=== PATIENT | female | born 1980 | race Caucasian/White ===

== ENCOUNTER 2016-10-05 09:34 | Emergency (ER) | payer MEDICAID ==
[2016-10-05] MEDS ORDERED: HYDROCODONE/ACETAMINOPHEN 5-325 MG TABLET PO ONE (10:16)
--- NOTE | 2016-10-05 10:21 | ER Document Report ---
ED General - General Chief Complaint: Vaginal Bleeding Stated Complaint: LOWER BACK PAIN Time Seen by Provider: 10/05/16 09:53 Mode of Arrival: Ambulatory Information source: Patient Notes: 35 yr old female presents with complaints of left lower quadrant abdominal pain. Patient notes that she has a history of ovarian cysts. Denies any fevers or chills admits to cramping sensation. Patient has had intermittent spotting as well. TRAVEL OUTSIDE OF THE [place] IN LAST 30 DAYS: No - HPI Onset: Yesterday Onset/Duration: Sudden Quality of pain: Sharp Severity: Mild Pain Level: 1 Associated symptoms: None Exacerbated by: Denies Relieved by: Denies Similar symptoms previously: No Recently seen / treated by doctor: No - Related Data Allergies/Adverse Reactions: Sulfa (Sulfonamide Antibiotics) Allergy (Verified 10/05/16 10:12) Past Medical History - Social History Smoking Status: Current Every Day Smoker Cigarette use (# per day): Yes Chew tobacco use (# tins/day): No Smoking Education Provided: No Family History: Reviewed & Not Pertinent Renal/ Medical History: Denies: Hx Peritoneal Dialysis Past Surgical History: Reports: Hx Cholecystectomy, Hx Tonsillectomy, Hx Tubal Ligation - Immunizations Immunizations up to date: Yes Hx Diphtheria, Pertussis, Tetanus Vaccination: Yes Review of Systems - Review of Systems Notes: REVIEW OF SYSTEMS: CONSTITUTIONAL : Denies fever, chills, or sweats. Denies recent illness. EENT: Denies eye, ear, throat, or mouth pain or symptoms. Denies nasal or sinus congestion or discharge. Denies throat, tongue, or mouth swelling or difficulty swallowing. CARDIOVASCULAR: Denies chest pain. Denies palpitations or racing or irregular heart beat. Denies ankle edema. RESPIRATORY: Denies cough, cold, or chest congestion. Denies shortness of breath, difficulty breathing, or wheezing. GASTROINTESTINAL: admits to abd pain . GENITOURINARY: Denies difficulty urinating, painful urination, burning, frequency, blood in urine, or discharge. FEMALE GENITOURINARY: vaginal spotting MUSCULOSKELETAL: Denies back or neck pain or stiffness. Denies joint pain or swelling. SKIN: Denies rash, lesions or sores. HEMATOLOGIC : Denies easy bruising or bleeding. LYMPHATIC: Denies swollen, enlarged glands. NEUROLOGICAL: Denies confusion or altered mental status. Denies passing out or loss of consciousness. Denies dizziness or lightheadedness. Denies headache. Denies weakness or paralysis or loss of use of either side. Denies problems with gait or speech. Denies sensory loss, numbness, or tingling. Denies seizures. PSYCHIATRIC: Denies anxiety or stress. Denies depression, suicidal ideation, or homicidal ideation. ALL OTHER SYSTEMS REVIEWED AND NEGATIVE. PHYSICAL EXAMINATION: GENERAL: Well-appearing, well-nourished and in no acute distress. HEAD: Atraumatic, normocephalic. EYES: Pupils equal round and reactive to light, extraocular movements intact, conjunctiva are normal. ENT: Nares patent, oropharynx clear without exudates. Moist mucous membranes. NECK: Normal range of motion, supple without lymphadenopathy LUNGS: Breath sounds clear to auscultation bilaterally and equal. No wheezes rales or rhonchi. HEART: Regular rate and rhythm without murmurs ABDOMEN: Soft,mild tenderness LLQ Female : deferred Musculoskeletal: Normal range of motion, no pitting or edema. No cyanosis. NEUROLOGICAL: Cranial nerves grossly intact. Normal speech, normal gait. Normal sensory, motor exams PSYCH: Normal mood, normal affect. SKIN: Warm, Dry, normal turgor, no rashes or lesions noted. Dictation was performed using [employer] voice recognition software Physical Exam - Vital signs Vitals: Temp Pulse Resp BP Pulse Ox 98.4 F 80 18 154/65 H 99 10/05/16 09:46 10/05/16 09:46 10/05/16 09:46 10/05/16 09:46 10/05/16 09:46 Course - Re-evaluation Re-evalutation: 10/05/16 10:22 u/s pending 10/05/16 11:37 Ultrasound is consistent with a fibroid and nabothian cysts. Otherwise patient appears well labwork notes no significant abnormality. Patient will be given follow-up with [facility] After performing a Medical Screening Examination, I estimate there is LOW risk for ACUTE APPENDICITIS, BOWEL OBSTRUCTION, ACUTE CHOLECYSTITIS, PERFORATED DIVERTICULITIS, INCARCERATED HERNIA, PANCREATITIS, PELVIC INFLAMMATORY DISEASE, PERFORATED ULCER, ECTOPIC , or TUBO-OVARIAN ABSCESS, thus I consider the discharge disposition reasonable. Also, there is no evidence or peritonitis , sepsis, or toxicity. I have reevaluated this patient multiple times and no significant life threatening changes are noted. The patient and I have discussed the diagnosis and risks, and we agree with discharging home with close follow-up with the understanding that symptoms and presentations can change. We also discussed returning to the Emergency Department immediately if new or worsening symptoms occur. We have discussed the symptoms which are most concerning (e.g., bloody stool, fever, changing or worsening pain, vomiting) that necessitate immediate return. - Vital Signs Vital signs: Temp Pulse Resp BP Pulse Ox 98.4 F 80 18 154/65 H 99 10/05/16 09:46 10/05/16 09:46 10/05/16 09:46 10/05/16 09:46 10/05/16 09:46 - Laboratory Result Diagrams: 10/05/16 10:23 10/05/16 10:23 Laboratory results interpreted by me: 10/05/16 10/05/16 10/05/16 10:23 10:23 10:23 RDW 17.6 H BUN 5 L Urine Blood MODERATE H - Diagnostic Test Radiology reviewed: Image reviewed, Reports reviewed - results given to patient Discharge - Discharge Clinical Impression: Vaginal bleeding, Nabothian cyst Fibroid Qualifiers: Uterine leiomyoma location: unspecified location Qualified Code(s): D25.9 - Leiomyoma of uterus, unspecified Condition: Stable Disposition: HOME, SELF-CARE Instructions: Dysfunctional Uterine Bleeding ([facility]) Prescriptions: Hydrocodone/Acetaminophen [Seneca 5-325 mg Tablet] 1 tab PO Q6 #10 tablet Referrals: [facility] [Provider Group] - Follow up tomorrow
[2016-10-05 10:45] LABS: ABSOLUTE EOSINOPHILS # (AUTO) 0.2 10^3/uL (0.0-0.6); ABSOLUTE LYMPHOCYTES (AUTO) 1.8 10^3/uL (0.5-4.7); ABSOLUTE MONOCYTES (AUTO) 0.5 10^3/uL (0.1-1.4); ABSOLUTE NEUT (AUTO) 6.6 10^3/uL (1.7-8.2); BASOPHILS % (AUTO) 0.3 % (0-2); EOSINOPHILS % (AUTO) 1.7 % (0-6); HEMATOCRIT 39.2 % (36.0-47.0); HEMOGLOBIN 12.9 g/dL (12.0-15.5); HGB HCT DIFFERENCE -0.5; LYMPHOCYTES % (AUTO) 19.6 % (13-45); MEAN CORPUSCULAR HEMOGLOBIN 29.3 pg (27.0-33.4); MEAN CORPUSCULAR HGB CONC 32.9 g/dL (32.0-36.0); MEAN CORPUSCULAR VOLUME 89 fl (80-97); MONOCYTES % (AUTO) 5.3 % (3-13); RED BLOOD COUNT 4.41 10^6/uL (3.72-5.28); RED CELL DISTRIBUTION WIDTH 17.6 % (11.5-14.0); SEGMENTED NEUTROPHILS % (AUTO) 73.1 % (42-78)
[2016-10-05 10:48] LABS: APPEARANCE,URINE CLEAR; BILIRUBIN,URINE NEGATIVE (NEGATIVE); GLUCOSE, URINE NEGATIVE (NEGATIVE); KETONES,URINE NEGATIVE (NEGATIVE); LEUKOCYTE ESTERASE,URINE NEGATIVE (NEGATIVE); NITRITE,URINE NEGATIVE (NEGATIVE); PROTEIN,URINE NEGATIVE (NEGATIVE); URINE SPECIFIC GRAVITY 1.002; UROBILINOGEN,URINE NEGATIVE mg/dL (<2.0)
[2016-10-05 11:17] LABS: ALANINE AMINOTRANSFERASE 21 U/L (9-52); ALBUMIN 4.5 g/dL (3.5-5.0); ALKALINE PHOSPHATASE 74 U/L (38-126); ANION GAP 12 (5-19); ASPARTATE AMINO TRANSFERASE 16 U/L (14-36); BILIRUBIN,DIRECT 0.3 mg/dL (0.0-0.4); BILIRUBIN,TOTAL 0.5 mg/dL (0.2-1.3); BLOOD UREA NITROGEN 5 mg/dL (7-20); CALCIUM 9.6 mg/dL (8.4-10.2); CARBON DIOXIDE 26 mmol/L (22-30); CHLORIDE 105 mmol/L (98-107); CREATININE RESULT 0.67 mg/dL (0.52-1.25); GLUCOSE 90 mg/dL (75-110); POTASSIUM 4.2 mmol/L (3.6-5.0); SODIUM 143.2 mmol/L (137-145); TOTAL PROTEIN 7.8 g/dL (6.3-8.2)
--- NOTE | 2016-10-05 11:29 | RADIOLOGY REPORT (SQ) ---
EXAM DESCRIPTION: U/S NON OB PEL TV W/DOPPLER COMPLETED DATE/TIME: 10/05/2016 11:14 am REASON FOR STUDY: LLQ pain COMPARISON: 04/19/2015. TECHNIQUE: Dynamic and static grayscale images acquired of the pelvis via transvaginal approach and recorded on PACS. Additional selected color Doppler and spectral images recorded. LIMITATIONS: None. FINDINGS: UTERUS: Hypoechoic mass measuring 1.4 cm. ENDOMETRIAL STRIPE: No focal or generalized thickening. No masses. CERVIX: Multiple nabothian cysts. RIGHT OVARY: No abnormal masses. RIGHT OVARY DOPPLER: Normal arterial vascular flow without evidence for torsion. LEFT OVARY: No abnormal masses. LEFT OVARY DOPPLER: Normal arterial vascular flow without evidence for torsion. FREE FLUID: None noted. OTHER: No other significant finding. MEASUREMENTS: UTERUS: 4.6 x 5.4 x 9.3 cm. ENDOMETRIAL STRIPE: 8 mm. RIGHT OVARY: 1.7 x 1.9 x 2.7 cm. LEFT OVARY: 1.5 x 2.0 x 2.8 cm. IMPRESSION: SMALL UTERINE FIBROID. MULTIPLE NABOTHIAN CYSTS IN THE CERVIX. NO OTHER SIGNIFICANT FI NDINGS. TECHNICAL DOCUMENTATION: JOB ID: [id number] [employer]- All Rights Reserved
[2016-10-05 11:54] VITALS: BP 120/71
== END 2016-10-05 11:51 | disposition home or self-care (01) ==
LOC: ER 09:34
DX: N88.8 Other specified noninflammatory disorders of cervix uteri (principal); D25.9 Leiomyoma of uterus, unspecified; N93.9 Abnormal uterine and vaginal bleeding, unspecified; R10.32 Left lower quadrant pain; F17.210 Nicotine dependence, cigarettes, uncomplicated
CPT/HCPCS: 36415; 76830; 80053; 81001; 84703; 85025; 93976; 99283

== ENCOUNTER 2017-05-09 15:54 | Emergency (ER) | payer MEDICAID ==
[2017-05-09 16:30] VITALS: BP 135/80
[2017-05-09] MEDS ORDERED: ONDANSETRON 4 MG TAB.RAPDIS PO ONE (17:17)
[2017-05-09] MEDS ORDERED: OXYCODONE-ACETAMINOPHEN 5-325 MG TABLET PO ONE (17:17)
--- NOTE | 2017-05-09 17:19 | ER Document Report ---
ED Medical Screen (RME) - General Chief Complaint: Nausea/Vomiting Stated Complaint: CRAMPING Time Seen by Provider: 05/09/17 17:11 Mode of Arrival: Ambulatory Information source: Patient Notes: 36-year-old female with a history of migraines presents to the emergency room with cough, congestion, nausea, vomiting, body aches, fatigue. Patient denies fever. She denies neck stiffness, or rash. TRAVEL OUTSIDE OF THE [place] IN LAST 30 DAYS: No - HPI Onset: Last week Onset/Duration: Gradual Quality of pain: Dull Severity: Moderate Pain Level: 2 Associated Symptoms: Diarrhea, Nausea, Sinus pain/drainage. denies: Abdominal pain, Chest pain, Shortness of breath, Slow to respond, Sore throat, Vomiting Exacerbated by: Denies Relieved by: Denies Similar symptoms previously: No Recently seen / treated by doctor: Yes - Related Data Smoking: Cigarettes Frequency of alcohol use: None Drug Abuse: None Allergies/Adverse Reactions: Sulfa (Sulfonamide Antibiotics) Allergy (Verified 05/09/17 15:58) Past Medical History - General Information source: Patient - Social History Cigarette use (# per day): No Chew tobacco use (# tins/day): No Frequency of alcohol use: None Drug Abuse: None Lives with: Family Family history: None - Medical History Medical History: Negative Renal/ Medical History: Denies: Hx Peritoneal Dialysis Past Surgical History: Reports: Hx Cholecystectomy, Hx Tonsillectomy, Hx Tubal Ligation - Immunizations Immunizations up to date: Yes Hx Diphtheria, Pertussis, Tetanus Vaccination: Yes Review of Systems - Review of Systems Constitutional: denies: Chills, Fever EENT: Sinus pressure Cardiovascular: denies: Chest pain, Palpitations, Heart racing Respiratory: Cough Gastrointestinal: Diarrhea, Nausea Genitourinary: No symptoms reported Female Genitourinary: No symptoms reported Musculoskeletal: No symptoms reported Skin: No symptoms reported Hematologic/Lymphatic: No symptoms reported Neurological/Psychological: Headaches Physical Exam - Vital signs Vitals: Temp Pulse Resp BP Pulse Ox 97.8 F 75 16 135/80 H 100 05/09/17 16:25 05/09/17 16:25 05/09/17 16:25 05/09/17 16:25 05/09/17 16:25 Notes: Physical exam: GENERAL: 36-year-old female, alert and oriented 3, no acute distress HEAD: Atraumatic, normocephalic. EYES: Pupils equal round and reactive to light, extraocular movements intact, sclera anicteric, conjunctiva are normal. ENT: TMs normal, nares patent, oropharynx clear without exudates. Moist mucous membranes. NECK: Normal range of motion, supple without obvious mass or JVD. LUNGS: Breath sounds clear to auscultation bilaterally and equal. No wheezes rales or rhonchi. HEART: Regular rate and rhythm without murmurs, rubs or gallops. ABDOMEN: Soft, normoactive bowel sounds. No tenderness to palpation. No guarding, no rebound. No masses appreciated. EXTREMITIES: Normal range of motion, no pitting or edema. No clubbing or cyanosis. NEUROLOGICAL: Cranial nerves II through XII grossly intact. Neck supple, no photophobia, no meningismus, Normal speech, moving all extremities. PSYCH: Normal mood, normal affect. SKIN: Warm, Dry, normal turgor, no rashes or lesions noted. Course - Re-evaluation Re-evalutation: 05/09/17 19:59 patient states she has had phenergan before without problems. 05/09/17 20:45 - Vital Signs Vital signs: Temp Pulse Resp BP Pulse Ox 97.8 F 75 16 135/80 H 100 05/09/17 16:25 05/09/17 16:25 05/09/17 16:25 05/09/17 16:25 05/09/17 16:25 - Laboratory Result Diagrams: 05/09/17 18:15 05/09/17 18:15 Laboratory results interpreted by me: 05/09/17 18:15 WBC 10.8 H RDW 16.6 H Eosinophils % 12.8 H Absolute Eosinophils 1.4 H Doctor's Discharge - Discharge Clinical Impression: Viral syndrome Condition: Stable Disposition: HOME, SELF-CARE Instructions: Viral Syndrome ([facility]) Additional Instructions: rest, drink plenty of fluids, take phenergan as needed for nausea. take pain medication as needed. see the narcotic instruction sheet. Return to the ER for worsening abdominal pain, pain moving to the right lower side or concerns that your headache is getting worse or neck pain. Prescriptions: Oxycodone HCl/Acetaminophen [Percocet 5-325 mg Tablet] 1 - 2 tab PO ASDIR PRN # 25 tablet PRN Reason: Promethazine HCl [Phenergan 25 mg Tablet] 25 mg PO Q6H PRN #15 tablet PRN Reason: Referrals: MARIBEL KOEHLER MD [Primary Care Provider] - Follow up as needed
[2017-05-09 18:27] LABS: ABSOLUTE BASOPHILS # (AUTO) 0.1 10^3/uL (0.0-0.2); ABSOLUTE EOSINOPHILS # (AUTO) 1.4 10^3/uL (0.0-0.6); ABSOLUTE MONOCYTES (AUTO) 0.7 10^3/uL (0.1-1.4); ABSOLUTE NEUT (AUTO) 5.7 10^3/uL (1.7-8.2); BASOPHILS % (AUTO) 0.6 % (0-2); EOSINOPHILS % (AUTO) 12.8 % (0-6); HEMATOCRIT 40.8 % (36.0-47.0); HEMOGLOBIN 13.4 g/dL (12.0-15.5); LYMPHOCYTES % (AUTO) 27.9 % (13-45); MEAN CORPUSCULAR HEMOGLOBIN 29.2 pg (27.0-33.4); MEAN CORPUSCULAR HGB CONC 32.8 g/dL (32.0-36.0); MEAN CORPUSCULAR VOLUME 89 fl (80-97); MONOCYTES % (AUTO) 6.1 % (3-13); PLATELET COUNT 445 10^3/uL (150-450); RED BLOOD COUNT 4.59 10^6/uL (3.72-5.28); RED CELL DISTRIBUTION WIDTH 16.6 % (11.5-14.0); SEGMENTED NEUTROPHILS % (AUTO) 52.6 % (42-78); TOTAL CELLS COUNTED % (AUTO) 100 %; WHITE BLOOD COUNT 10.8 10^3/uL (4.0-10.5)
[2017-05-09 18:48] LABS: ALANINE AMINOTRANSFERASE 20 U/L (9-52); ALBUMIN 4.6 g/dL (3.5-5.0); ALKALINE PHOSPHATASE 61 U/L (38-126); ANION GAP 10 (5-19); ASPARTATE AMINO TRANSFERASE 15 U/L (14-36); BILIRUBIN,DIRECT 0.2 mg/dL (0.0-0.4); BILIRUBIN,TOTAL 0.2 mg/dL (0.2-1.3); BLOOD UREA NITROGEN 8 mg/dL (7-20); CALCIUM 10.2 mg/dL (8.4-10.2); CARBON DIOXIDE 29 mmol/L (22-30); CHLORIDE 104 mmol/L (98-107); GLUCOSE 84 mg/dL (75-110); LIPASE 144.8 U/L (23-300); POTASSIUM 4.8 mmol/L (3.6-5.0); SODIUM 142.7 mmol/L (137-145)
[2017-05-09] MEDS ORDERED: PROMETHAZINE HCL 25 MG TABLET PO ONE (19:58)
== END 2017-05-09 20:00 | disposition home or self-care (01) ==
LOC: ER 15:54
DX: B34.9 Viral infection, unspecified (principal); R11.2 Nausea with vomiting, unspecified; R05 Cough; R53.81 Other malaise; R19.7 Diarrhea, unspecified; R51 Headache; J34.89 Other specified disorders of nose and nasal sinuses; Z88.2 Allergy status to sulfonamides; Z90.49 Acquired absence of other specified parts of digestive tract; Z98.51 Tubal ligation status
CPT/HCPCS: 99284; 36415; 84702; 83690; 85025; 80053; S0119; J3490

== ENCOUNTER 2017-05-21 10:26 | Emergency (ER) | payer MEDICAID ==
[2017-05-21 10:35] VITALS: BP 112/41
[2017-05-21] MEDS ORDERED: HYDROCODONE/ACETAMINOPHEN 5-325 MG TABLET PO ONE (11:11)
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
[2017-05-21] MEDS ORDERED: IBUPROFEN 600 MG TABLET PO ONE (13:28)
== END 2017-05-21 13:34 | disposition home or self-care (01) ==
LOC: ER 10:26
DX: S05.02XA Injury of conjunctiva and corneal abrasion without foreign body, left eye, initial encounter (principal); H57.12 Ocular pain, left eye; H53.8 Other visual disturbances; R51 Headache; Y04.8XXA Assault by other bodily force, initial encounter; Z88.2 Allergy status to sulfonamides; F17.210 Nicotine dependence, cigarettes, uncomplicated
CPT/HCPCS: 99284; 70486; J3490

== ENCOUNTER 2017-11-21 09:47 | Emergency (ER) | payer MEDICAID ==
[2017-11-21 10:13] VITALS: BP 142/70
--- NOTE | 2017-11-21 10:59 | RADIOLOGY REPORT (SQ) ---
EXAM DESCRIPTION: CHEST 2 VIEWS COMPLETED DATE/TIME: 11/21/2017 10:21 am REASON FOR STUDY: cough congestion COMPARISON: 05/31/2014. EXAM PARAMETERS: NUMBER OF VIEWS: two views TECHNIQUE: Digital Frontal and Lateral radiographic views of the chest acquired. RADIATION DOSE: NA LIMITATIONS: none FINDINGS: LUNGS AND PLEURA: No opacities, masses or pneumothorax. No pleural effusion. MEDIASTINUM AND HILAR STRUCTURES: No masses or contour abnormalities. HEART AND VASCULAR STRUCTURES: Heart normal size. No evidence for failure. BONES: No acute findings. HARDWARE: None in the chest. OTHER: No other significant finding. IMPRESSION: NO ACUTE RADIOGRAPHIC FINDING IN THE CHEST. TECHNICAL DOCUMENTATION: JOB ID: [id number] [employer]- All Rights Reserved Reading location - IP/workstation name: [email or web address]
[2017-11-21] MEDS ORDERED: IPRATROPIUM/ALBUTEROL 0.5-2.5 MG/3 ML AMPUL NEB ONE (11:55)
[2017-11-21] MEDS ORDERED: PREDNISONE 20 MG TABLET PO ONE (11:55)
[2017-11-21] MEDS ORDERED: LIDOCAINE 5% (700 MG) TRANSDERMAL ADH..PATCH TP ONE (11:55)
--- NOTE | 2017-11-21 11:56 | ER Document Report ---
HPI - HPI Patient complains to provider of: Cough Onset: Other - Weeks Onset/Duration: Persistent Quality of pain: Achy Pain Level: 3 Context: Patient presents complaining of nonproductive cough for the past 2 weeks. Patient does have anterior chest pain only with coughing. Patient also complains of upper back pain and states that she thinks she pulled a muscle in coughing so hard. Patient without any fever. Patient does smoke a pack per day. Associated Symptoms: Chest pain, Nonproductive cough. denies: Fever Exacerbated by: Coughing Relieved by: Remaining still Similar symptoms previously: No Recently seen / treated by doctor: No - ROS ROS below otherwise negative: Yes Systems Reviewed and Negative: Yes All other systems reviewed and negative - CONSTITUTIONAL Constitutional: DENIES: Fever - NEURO Neurology: DENIES: Headache - CARDIOVASCULAR Cardiovascular: REPORTS: Chest pain - RESPIRATORY Respiratory: REPORTS: Coughing. DENIES: Trouble Breathing - GASTROINTESTINAL Gastrointestinal: DENIES: Abdominal Pain, Nausea, Patient vomiting - REPRODUCTIVE Reproductive: DENIES: : - MUSCULOSKELETAL Musculoskeletal: REPORTS: Back Pain. DENIES: Extremity pain, Neck Pain - DERM Skin Color: Normal Skin Problems: None Past Medical History - General Information source: Patient - Social History Smoking Status: Current Every Day Smoker Smoking Education Provided: Yes Frequency of alcohol use: None Drug Abuse: None 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 with: Family Family History: Reviewed & Not Pertinent - Medical History Medical History: Negative Renal/ Medical History: Denies: Hx Peritoneal Dialysis Past Surgical History: Reports: Hx Cholecystectomy, Hx Tonsillectomy, Hx Tubal Ligation - Immunizations Immunizations up to date: Yes Hx Diphtheria, Pertussis, Tetanus Vaccination: Yes Vertical Provider Document - CONSTITUTIONAL Agree With Documented VS: Yes Exam Limitations: No Limitations General Appearance: WD/WN, No Apparent Distress - INFECTION CONTROL TRAVEL OUTSIDE OF THE [place] IN LAST 30 DAYS: No - HEENT HEENT: Atraumatic, Normocephalic - NECK Neck: Normal Inspection, Supple. negative: Lymphadenopathy-Left, Lymphadenopathy-Right - RESPIRATORY Respiratory: No Respiratory Distress, Wheezing. negative: Chest Non-Tender - Tear chest wall tenderness with coughing - CARDIOVASCULAR Cardiovascular: Regular Rate, Regular Rhythm, No Murmur - GI/ABDOMEN Gastrointestinal: Abdomen Soft - BACK Back: Abnormal Inspection - Right upper thoracic paraspinal muscle tenderness worse with palpation. negative: CVA Tenderness-Right, CVA Tenderness-Left - MUSCULOSKELETAL/EXTREMETIES Musculoskeletal/Extremeties: MAEW, FROM, Non-Tender - NEURO Level of Consciousness: Awake, Alert, Appropriate Motor/Sensory: No Motor Deficit - DERM Integumentary: Warm, Dry, No Rash Course - Re-evaluation Re-evalutation: 11/21/17 13:25 Patient continues with scattered wheezing bilaterally, refuses to have additional nebulizer at this time. Patient with pleuritic chest pain, normal EKG and no pneumonia noted on x-ray. The patient has atypical chest pain as the patient's chest pain is not suggestive of pulmonary embolus, cardiac ischemia, aortic dissection, or other serious etiology. Given the extremely low risk of these diagnoses for the test in evaluation for these possibilities does not appear to be indicated at this time. Patient has been instructed to return if the symptoms worsen or change in any way. - Vital Signs Vital signs: Temp Pulse Resp BP Pulse Ox 97.4 F 67 20 142/70 H 100 11/21/17 10:11 11/21/17 09:57 11/21/17 10:11 11/21/17 10:11 11/21/17 10:11 - Diagnostic Test Radiology reviewed: Reports reviewed - EKG Interpretation by Me EKG shows normal: Sinus rhythm Rate: Normal Discharge - Discharge Clinical Impression: Bronchitis, Wheezing Back pain Qualifiers: Back pain location: thoracic back pain Chronicity: unspecified Back pain laterality: right Qualified Code(s): M54.6 - Pain in thoracic spine Chest pain Qualifiers: Chest pain type: chest pain on breathing Qualified Code(s): R07.1 - Chest pain on breathing Condition: Stable Disposition: HOME, SELF-CARE Additional Instructions: Return immediately for any new or worsening symptoms Followup with your primary care provider, call tomorrow to make a followup appointment stop smoking BRONCHITIS: You have acute bronchitis. This disease is an infection or inflammation of the air passageways in your lungs. Symptoms usually include cough, low grade fever, shortness of breath, and wheezing. The cough usually persists for a couple of weeks. Most cases of bronchitis get better without antibiotics. We prescribe antibiotics when we believe bacteria are damaging your airways, or if there's high risk the bronchitis will worsen into pneumonia. Increase your fluid intake. A cool mist humidifier may make your lungs more comfortable. An expectorant (cough medicine that loosens phlegm) can help. If you smoke, STOP!!! Recovery from bronchitis can be somewhat slow, but you should see improvement within a day or two. Repeated episodes of bronchitis may result in lung damage -- for example, chronic bronchitis, recurrent pneumonias, or emphysema. Call the doctor if you develop increasing fever, shortness of breath, chest pain, bloody sputum, or otherwise worsen. If you have not improved at all after several days, contact the physician. BRONCHITIS WITH BRONCHOSPASM (WHEEZING): You have bronchitis with bronchospasm (wheezing). Sometimes people develop wheezing with a chest cold. This occurs either because of an underlying tendency toward asthma or because the virus itself irritates the bronchial tubes. This irritation causes cough, shortness of breath, and wheezing. Emergency treatment of bronchospasm may include adrenaline shots or bronchodilator aerosol. You may feel lightheaded and have a rapid pulse for an hour or two. Rest and get plenty of fluids. At home, we'll treat you with a bronchodilator inhaler. Corticosteroids may be required for some patients. Until you recover, avoid chemical fumes, dusts, pollens, and exercising in very cold or dry air. If you smoke, stop now! Most cases of bronchitis get better without antibiotics. We prescribe antibiotics when we believe bacteria are damaging your airways, or if there's high risk the bronchitis will worsen into pneumonia. Increase your fluid intake. A cool mist humidifier may make your lungs more comfortable. An expectorant (cough medicine that loosens phlegm) can help. Repeated episodes of bronchitis and bronchospasm may result in lung damage -- for example, chronic bronchitis, recurrent pneumonias, or emphysema. If you develop a fever, increased wheezing, chest pain, or severe shortness of breath, you should contact the doctor immediately. INHALED BRONCHODILATORS: You have received a treatment of and/or prescription for an inhaled bronchodilator -- a medication which stimulates the airways in the lung to dilate. This improves the flow of air in asthma, bronchitis, and emphysema. These medicines have some similarity to adrenaline, and can cause similar side effects: shakiness, racing heart, and a sense of nervousness. These side effects decrease with time. Contact your doctor if these side effects are severe. Do not over-use the medicine. Too-frequent use of the inhaler may make it ineffective. Call your doctor if the inhaler is not controlling your symptoms at the prescribed doses. STEROID MEDICATION: You have been given an injection of or oral medicine of the cortisone/ steroid class. This medication is used to control inflammation or allergy. [place] t is usually only given for a short period of time, until the acute process subsides. There are usually no side effects from short-term use of cortisone-like medications. Some persons feel an increased sense of well-being and are not sleepy at bedtime. Long-term use of cortisone medications is best avoided, unless required for a severe condition. If your condition does not remit, or relapses after the course of corticosteroid medication, you should consult your physician. USE OF ACETAMINOPHEN (Tylenol): Acetaminophen may be taken for pain relief or fever control. It's much safer than aspirin, offering a wider range of "safe" dosages. It is safe during . Some brand names are Tylenol, Panadol, Datril, Anacin 3, Tempra, and Liquiprin. Acetaminophen can be repeated every four hours. The following are maximum recommended dosages: >89 pounds or adults 650 mg to 900 mg Acetaminophen can be repeated every four hours. Maximum dose not to exceed 4000 mg a day. SMOKING: If you smoke, you should stop smoking. The tar and chemicals in cigarette smoke are harmful. Smoking has been shown to cause: emphysema chronic bronchitis lung cancer mouth and throat cancer stomach and pancreas cancer premature aging defects In addition, smoking increases ear and lung infections in children of smokers. FOLLOW-UP CARE: If you have been referred to a physician for follow-up care, call the physician s office for an appointment as you were instructed or within the next two days. If you experience worsening or a significant change in your symptoms, notify the physician immediately or return to the Emergency Department at any time for re-evaluation. Prescriptions: Albuterol Sulfate [Ventolin Hfa] 2 puff IH Q4HP PRN #17 gm PRN Reason: Cyclobenzaprine HCl [Flexeril 10 Mg Tablet] 10 mg PO TID #15 tablet Prednisone [Deltasone 20 mg Tablet] 3 tab PO DAILY 4 Days tablet Forms: Smoking Cessation Education, Return to Work Referrals: [facility] [Provider Group] - Follow up as needed
[2017-11-21] MEDS ORDERED: ALBUTEROL SULFATE 0.083% NEB 2.5 MG/3 ML AMPUL NEB ONE ×2 (12:13→12:48)
[2017-11-21] MEDS ORDERED: CYCLOBENZAPRINE HCL 10 MG TABLET PO ONE (13:24)
--- NOTE | 2017-11-21 14:31 | EKG REPORT ---
SEVERITY:- NORMAL ECG - SINUS RHYTHM : Confirmed by: Leslie Reeder MD 21-Nov-2017 14:30:28
== END 2017-11-21 14:00 | disposition home or self-care (01) ==
LOC: ER 09:47
DX: J40 Bronchitis, not specified as acute or chronic (principal); R05 Cough; R07.81 Pleurodynia; M54.6 Pain in thoracic spine; R06.2 Wheezing; R07.1 Chest pain on breathing; F17.200 Nicotine dependence, unspecified, uncomplicated
CPT/HCPCS: 93005; 94640 ×2; 99284; 71046; 93010; J3490 ×2; J7512; J7620

== ENCOUNTER 2018-01-11 15:59 | Emergency (ER) | payer MEDICAID ==
[2018-01-11 16:05] VITALS: BP 117/63
--- NOTE | 2018-01-11 17:31 | ER Document Report ---
ED Skin Rash/Insect Bite/Abscs - General Chief Complaint: Insect Bite Stated Complaint: POSSIBLE BITE ON CHEST Time Seen by Provider: 01/11/18 16:29 Mode of Arrival: Ambulatory Information source: Patient Notes: 37-year-old female presented to ED for complaint of a insect bite to the left breast. She states it started as a little round insect bite and she was afraid that it was a brown recluse spider so she has been squeezing the area since Wednesday. She states now her both breasts are very tender to the touch. She has bruises to both breasts. She also complains of a headache. She states Tylenol does not usually help her headaches and she has taken some Motrin. TRAVEL OUTSIDE OF THE [place] IN LAST 30 DAYS: No - HPI Patient complains to provider of: Insect bite, Other - Headache Onset/Duration: Gradual Quality of pain: Pressure - Bruising to both breast at the patient had a insect bite to the left breast and has been squeezing it and holding the rest breast out of the way. She states she developed a headache from the stress of worrying that she had a brown recluse spider and was going to lose her breast Severity: Moderate Pain Level: 4 Skin Character: Other - Insect bite to the left breast with a bruise surrounding the breast no signs or symptoms of any infection or inflammation. Quality of rash: Other - Tender area around the insect bite to the left breast from patient squeezing the breast also tenderness to the right breast from her previous in the right breast out of the way. Patient states she now has a tension headache from being concerned about the breast Identify cause: Yes Exacerbated by: Other - Squeeze in the breast Relieved by: Denies Similar symptoms previously: Yes - She has had headaches before but is not had concerned about a brown recluse Recently seen / treated by doctor: No - Related Data Allergies/Adverse Reactions: Sulfa (Sulfonamide Antibiotics) Allergy (Verified 11/21/17 09:49) Past Medical History - General Information source: Patient - Social History Smoking Status: Current Every Day Smoker Cigarette use (# per day): Yes - Pack per day Chew tobacco use (# tins/day): No Smoking Education Provided: Yes - Minutes Frequency of alcohol use: Occasional Drug Abuse: None 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 with: Family Family History: Reviewed & Not Pertinent Patient has suicidal ideation: No Patient has homicidal ideation: No - Past Medical History Cardiac Medical History: Reports: None Pulmonary Medical History: Reports: None EENT Medical History: Reports: None Neurological Medical History: Reports: None Endocrine Medical History: Reports: None Renal/ Medical History: Reports: None GI Medical History: Reports: None Musculoskeletal Medical History: Reports None Skin Medical History: Reports None Psychiatric Medical History: Reports: None Traumatic Medical History: Reports: None Infectious Medical History: Reports: None Past Surgical History: Reports: Hx Adenoidectomy, Hx Cholecystectomy, Hx Myringotomy, Hx Tonsillectomy, Hx Tubal Ligation - Immunizations Immunizations up to date: Yes Hx Diphtheria, Pertussis, Tetanus Vaccination: Yes Review of Systems - Review of Systems Notes: REVIEW OF SYSTEMS: CONSTITUTIONAL : Denies fever, chills, or sweats. Denies recent illness. EENT: Denies eye, ear, throat, or mouth pain or symptoms. Denies nasal or sinus congestion or discharge. Denies throat, tongue, or mouth swelling or difficulty swallowing. CARDIOVASCULAR: Denies chest pain. Denies palpitations or racing or irregular heart beat. Denies ankle edema. RESPIRATORY: Denies cough, cold, or chest congestion. Denies shortness of breath, difficulty breathing, or wheezing. GASTROINTESTINAL: Denies abdominal pain or distention. Denies nausea, vomiting , or diarrhea. Denies blood in vomitus, stools, or per rectum. Denies black, tarry stools. Denies constipation. GENITOURINARY: Denies difficulty urinating, painful urination, burning, frequency, blood in urine, or discharge. FEMALE GENITOURINARY: Denies vaginal bleeding, heavy or abnormal periods, irregular periods. Denies vaginal discharge or odor. MUSCULOSKELETAL: Denies back or neck pain or stiffness. Denies joint pain or swelling. SKIN: Small insect bite to the left breast. Patient states that she thought it was a brown recluse so she has been squeezing the area since Wednesday. She has developed an ecchymotic area to the left breast as well as the right from pushing her right breast out of the way so she can squeeze the left. HEMATOLOGIC : Denies easy bruising or bleeding. LYMPHATIC: Denies swollen, enlarged glands. NEUROLOGICAL: Complains of headache yesterday and today after worrying so much about the insect bite to her left breast. She states that Tylenol Motrin by himself never helped her headaches. She has a history of chronic headaches. Denies confusion or altered mental status. Denies passing out or loss of consciousness. Denies dizziness or lightheadedness. Denies weakness or paralysis or loss of use of either side. Denies problems with gait or speech. Denies sensory loss, numbness, or tingling. Denies seizures. PHYSICAL EXAMINATION: GENERAL: Well-appearing, well-nourished and in no acute distress. HEAD: Atraumatic, normocephalic. EYES: Pupils equal round and reactive to light, extraocular movements intact, conjunctiva are normal. ENT: Nares patent, oropharynx clear without exudates. Moist mucous membranes. NECK: Normal range of motion, supple without lymphadenopathy LUNGS: Breath sounds clear to auscultation bilaterally and equal. No wheezes rales or rhonchi. HEART: Regular rate and rhythm without murmurs ABDOMEN: Soft, nontender, nondistended abdomen. No guarding, no rebound. No masses appreciated. Female : deferred Musculoskeletal: Normal range of motion, no pitting or edema. No cyanosis. NEUROLOGICAL: Cranial nerves grossly intact. Normal speech, normal gait. Normal sensory, motor exams PSYCH: Normal mood, normal affect. SKIN: Insect bite to the left breast with bruising surrounding the insect bite and to the right breast after squeezing the left and right breast. Warm, Dry, normal turgor, no rashes or lesions noted. PSYCHIATRIC: Denies anxiety or stress. Denies depression, suicidal ideation, or homicidal ideation. ALL OTHER SYSTEMS REVIEWED AND NEGATIVE. Dictation was performed using [employer] voice recognition software Physical Exam - Vital signs Vitals: Temp Pulse Resp BP Pulse Ox 98.0 F 63 17 117/63 100 01/11/18 16:04 01/11/18 16:04 01/11/18 16:04 01/11/18 16:04 01/11/18 16:04 Course - Re-evaluation Re-evalutation: 01/11/18 17:50 Presentation of a headache that appears to be most consistent with tension versus migrainous type headache. Headache was not maximal in onset, patient has no focal neurologic deficits, no nuchal rigidity, vital signs within normal limits, no papilledema, and patient is overall well in appearance. Based on clinical history and examination I do not suspect an acute subarachnoid hemorrhage, dural venous sinus thrombosis, acute meningitis, or intercranial mass. Given my low clinical suspicion for any acute life-threatening etiology, I do not feel advanced neuro imaging or laboratory testing is indicated at this time. Will proceed with headache cocktail and reassess. Patient has a insect bite that she has been compressing frequently due to fear that she had a brown recluse. There is no infection inflammation or warmth to the area. - Vital Signs Vital signs: Temp Pulse Resp BP Pulse Ox 98.0 F 63 17 117/63 100 01/11/18 16:04 01/11/18 16:04 01/11/18 16:04 01/11/18 16:04 01/11/18 16:04 Discharge - Discharge Clinical Impression: Ecchymosis to left breast/patient squeezing Insect bite of left breast Qualifiers: Encounter type: initial encounter Qualified Code(s): S20.162A - Insect bite ( nonvenomous) of breast, left breast, initial encounter Headache Qualifiers: Headache type: unspecified Headache chronicity pattern: unspecified pattern Intractability: not intractable Qualified Code(s): R51 - Headache Condition: Stable Disposition: HOME, SELF-CARE Instructions: Family Physicians / Practices Additional Instructions: Insect Bites You have been bitten by an insect. These bites can cause two types of swelling: an initial swelling due to insect saliva or injected poison, and a late reaction due to your body's allergic reaction. This initial local reaction may be uncomfortable but is not dangerous. Often there's an itchy "hive" at the bite location. This is treated with antihistamines, cold compresses, and resting the affected body part. The later reaction often develops about the second day. The entire area becomes very swollen, red, itchy, and tender. This is an allergic reaction. Your body is attacking the leftover insect saliva or venom. This type of allergy is unpleasant, but not dangerous. We treat this swelling with cortisone -type medicine. Sometimes we use antibiotics if we're worried about infection. Antihistamines help with the itch. If you develop a fever, chills, a red streak, or swollen glands in the area of the bite, infection may be starting. Return at once. The bruising and tenderness around her insect bite is from you squeeze in the area. Please apply ice to the area but do not squeeze the insect bite anymore as this would just continue to cause irritation. Clean the area with some soap and water put a bacitracin on it and leave it alone. HEADACHE: The physician does not feel that the headache you are experiencing has a serious underlying cause. Most headaches are due to emotional stress, with resultant muscle tension (tension headache). Occasionally, headaches are secondary to changes in the blood vessels of the scalp (vascular headache and migraine headache). Sometimes, a headache is the first symptom of another developing illness, such as a viral infection. You have no evidence of stroke, bleeding, meningitis, or other serious cause of your headache. The treatment of headaches varies with the severity and cause of the pain. Not all headaches need pain shots. In fact, there is evidence that using narcotics for headaches may make them worse in the long run. The physician will determine the therapy that's in your best interest. If you develop a fever, if the headache is different from any you've previously experienced, or if the headache progressively worsens, then call your physician at once or go to the emergency room. USE OF DIPHENHYDRAMINE: Diphenhydramine (Benadryl) is an antihistamine and has been recommended to help treat your headache and to prevent side effects of other medications used to treat headaches. The medication can be repeated four times daily. Age Elixir (12.5 mg/tsp) 25 mg pill adult 1-2 tabs Antihistamines may cause drowsiness, especially with the first dose. Do not operate machinery or drive while under the effects of the medication. Do not combine the medication with alcohol, or with any other medication without talking to your doctor. ANTINAUSEA MEDICATION: You have been given a medication to suppress nausea and vomiting. This type of medication can be given as a shot, pill, or suppository. It will usually last for many hours. Pills and shots usually last six to eight hours, suppositories last about 12 hours. For the typical illness, only one or two doses of the medication may be necessary. Mild lightheadedness may occur. This type of medicine can cause drowsiness. Do not drive or operate dangerous machinery while under its influence. Do not mix with alcohol. See your doctor at once if you have muscle spasms or tightness, or uncontrollable motions (particularly of the neck, mouth, or jaw). Persistent vomiting or severe lightheadedness should also be evaluated by the physician. Ibuprofen Ibuprofen is an excellent, safe drug for pain control. In addition, it has potent antiinflammatory effects which are beneficial, especially in the treatment of injuries, arthritis, or tendonitis. It's best to take ibuprofen with food. Persons with ulcer disease or allergy to aspirin should notify their physician of this before taking ibuprofen. Take the medication exactly as prescribed. Don't take additional doses unless instructed to do so by your doctor. If you develop wheezing, shortness of breath, hives, faintness, stomach pain, vomiting, or dark black stools, return for re-evaluation at once. FOLLOW-UP CARE: If you have been referred to a physician for follow-up care, call the physician s office for an appointment as you were instructed or within the next two days. If you experience worsening or a significant change in your symptoms, notify the physician immediately or return to the Emergency Department at any time for re-evaluation. Prescriptions: Promethazine HCl [Phenergan 25 mg Tablet] 25 mg PO Q6H PRN #15 tablet PRN Reason: Forms: Smoking Cessation Education, Return to Work
== END 2018-01-11 17:42 | disposition home or self-care (01) ==
LOC: ER 15:59
DX: S20.162A Insect bite (nonvenomous) of breast, left breast, initial encounter (principal); W57.XXXA Bitten or stung by nonvenomous insect and other nonvenomous arthropods, initial encounter; S20.02XA Contusion of left breast, initial encounter; S20.01XA Contusion of right breast, initial encounter; X58.XXXA Exposure to other specified factors, initial encounter; R51 Headache; F17.210 Nicotine dependence, cigarettes, uncomplicated
CPT/HCPCS: 99283

== ENCOUNTER 2018-05-08 15:38 | Emergency (ER) | payer MEDICAID ==
[2018-05-08 15:53] VITALS: BP 112/52
[2018-05-08] MEDS ORDERED: NORMAL SALINE 1000 ML 1,000 ML IV ONE (16:28)
[2018-05-08] MEDS ORDERED: KETOROLAC TROMETHAMINE INJ/PF 30 MG/1 ML SDV IV ONE (16:28)
--- NOTE | 2018-05-08 16:30 | ER Document Report ---
ED Medical Screen (RME) - General Chief Complaint: Flank Pain Stated Complaint: BACK/RIB PAIN Time Seen by Provider: 05/08/18 16:27 Mode of Arrival: Ambulatory Information source: Patient TRAVEL OUTSIDE OF THE [place] IN LAST 30 DAYS: No - HPI Patient complains to provider of: L flank pain Onset: Yesterday - pt. with onset of L flank pain which has continued into today - Related Data Allergies/Adverse Reactions: Sulfa (Sulfonamide Antibiotics) Allergy (Verified 11/21/17 09:49) Past Medical History - Social History Frequency of alcohol use: None Drug Abuse: None Family history: None Renal/ Medical History: Denies: Hx Peritoneal Dialysis Past Surgical History: Reports: Hx Adenoidectomy, Hx Cholecystectomy, Hx Myr ingotomy, Hx Tonsillectomy, Hx Tubal Ligation - Immunizations Immunizations up to date: Yes Hx Diphtheria, Pertussis, Tetanus Vaccination: Yes Physical Exam - Vital signs Vitals: Temp Pulse Resp BP Pulse Ox 97.9 F 95 16 112/52 L 98 05/08/18 15:52 05/08/18 15:52 05/08/18 15:52 05/08/18 15:52 05/08/18 15:52 Course - Vital Signs Vital signs: Temp Pulse Resp BP Pulse Ox 97.9 F 95 16 112/52 L 98 05/08/18 15:52 05/08/18 15:52 05/08/18 15:52 05/08/18 15:52 05/08/18 15:52
[2018-05-08 17:02] LABS: ABSOLUTE EOSINOPHILS # (AUTO) 0.3 10^3/uL (0.0-0.6); ABSOLUTE LYMPHOCYTES (AUTO) 1.6 10^3/uL (0.5-4.7); ABSOLUTE MONOCYTES (AUTO) 0.6 10^3/uL (0.1-1.4); ABSOLUTE NEUT (AUTO) 4.3 10^3/uL (1.7-8.2); BASOPHILS % (AUTO) 0.5 % (0-2); HEMATOCRIT 37.4 % (36.0-47.0); HEMOGLOBIN 12.6 g/dL (12.0-15.5); LYMPHOCYTES % (AUTO) 23.7 % (13-45); MEAN CORPUSCULAR HEMOGLOBIN 29.8 pg (27.0-33.4); MEAN CORPUSCULAR HGB CONC 33.7 g/dL (32.0-36.0); MEAN CORPUSCULAR VOLUME 88 fl (80-97); MONOCYTES % (AUTO) 8.5 % (3-13); PLATELET COUNT 382 10^3/uL (150-450); RED BLOOD COUNT 4.24 10^6/uL (3.72-5.28); RED CELL DISTRIBUTION WIDTH 15.5 % (11.5-14.0); SEGMENTED NEUTROPHILS % (AUTO) 63.3 % (42-78); TOTAL CELLS COUNTED % (AUTO) 100 %; WHITE BLOOD COUNT 6.8 10^3/uL (4.0-10.5)
[2018-05-08 17:09] LABS: APPEARANCE,URINE CLEAR; BILIRUBIN,URINE NEGATIVE (NEGATIVE); COLOR,URINE STRAW; GLUCOSE, URINE NEGATIVE (NEGATIVE); KETONES,URINE NEGATIVE (NEGATIVE); LEUKOCYTE ESTERASE,URINE NEGATIVE (NEGATIVE); NITRITE,URINE NEGATIVE (NEGATIVE); PROTEIN,URINE NEGATIVE (NEGATIVE); URINE SPECIFIC GRAVITY 1.002; UROBILINOGEN,URINE NEGATIVE mg/dL (<2.0)
[2018-05-08 17:21] LABS: ALANINE AMINOTRANSFERASE 28 U/L (9-52); ALBUMIN 4.1 g/dL (3.5-5.0); ALKALINE PHOSPHATASE 62 U/L (38-126); ANION GAP 8 (5-19); ASPARTATE AMINO TRANSFERASE 30 U/L (14-36); BILIRUBIN,DIRECT 0.1 mg/dL (0.0-0.4); BILIRUBIN,TOTAL 0.4 mg/dL (0.2-1.3); BLOOD UREA NITROGEN 4 mg/dL (7-20); CALCIUM 9.7 mg/dL (8.4-10.2); CARBON DIOXIDE 29 mmol/L (22-30); CHLORIDE 100 mmol/L (98-107); GLUCOSE 77 mg/dL (75-110); POTASSIUM 4.2 mmol/L (3.6-5.0); SODIUM 136.8 mmol/L (137-145); TOTAL PROTEIN 6.8 g/dL (6.3-8.2)
[2018-05-08 17:22] LABS: URINE BARBITURATES SCREEN NEGATIVE; URINE BENZODIAZEPINES SCREEN NEGATIVE; URINE COCAINE SCREEN NEGATIVE; URINE MARIJUANA (THC) SCREEN UNCONFIRMED POSITIVE; URINE METHADONE SCREEN NEGATIVE; URINE PHENCYCLIDINE SCREEN NEGATIVE
--- NOTE | 2018-05-08 18:45 | RADIOLOGY REPORT (SQ) ---
EXAM DESCRIPTION: CT ABD/PELVIS NO ORAL OR IV COMPLETED DATE/TIME: 05/08/2018 6:30 pm REASON FOR STUDY: L flank pain COMPARISON: None. TECHNIQUE: CT scan of the abdomen and pelvis performed without intravenous or oral contrast. Images reviewed with lung, soft tissue, and bone windows. Reconstructed coronal and sagittal MPR images revi ewed. All images stored on PACS. All CT scanners at this facility use dose modulation, iterative reconstruction, and/or weight based d osing when appropriate to reduce radiation dose to as low as reasonably achievable (ALARA). [facility]: Dose Right [facility]: CareDose [facility]: Dose Right [facility]: Teradose 4D [facility]: [employer] RADIATION DOSE: CT Rad equipment meets quality standard of care and radiation dose reduction techniq ues were employed. CTDIvol: 4.9 mGy. DLP: 249 mGy-cm.mGy. LIMITATIONS: None. FINDINGS: LOWER CHEST: No significant findings. No nodules or infiltrates. NON-CONTRASTED LIVER, SPLEEN, ADRENALS: Evaluation limited by lack of IV contrast. No identified sign ificant masses. PANCREAS: No masses. No peripancreatic inflammatory changes. GALLBLADDER: Surgically absent. RIGHT KIDNEY AND URETER: No suspicious masses. Assessment limited by lack of IV contrast. No signif icant calcifications. No hydronephrosis or hydroureter. LEFT KIDNEY AND URETER: No suspicious masses. Assessment limited by lack of IV contrast. No signifi cant calcifications. No hydronephrosis or hydroureter. AORTA AND RETROPERITONEUM: No aneurysm. No retroperitoneal masses or adenopathy. BOWEL AND PERITONEAL CAVITY: No obvious masses or inflammatory changes. No free fluid. APPENDIX: Normal. PELVIS, BLADDER, AND ABDOMINAL WALL:No abnormal masses. No free fluid. Bladder normal. BONES: No significant findings. OTHER: No other significant finding. IMPRESSION: NO SIGNIFICANT OR ACUTE PROCESS IN THE ABDOMEN OR PELVIS. COMMENT: Quality ID # [id number]: Final reports with documentation of one or more dose reduction techniques (e.g., Automated exposure control, adjustment of the mA and/or kV according to patient size, use of iterative reconstruction technique) TECHNICAL DOCUMENTATION: JOB ID: [id number] [employer]- All Rights Reserved Reading location - IP/workstation name: [facility]-[email or web address]
[2018-05-08] MEDS ORDERED: ONDANSETRON HCL INJ/PF 4 MG/2 ML SDV IV ONE (18:46)
[2018-05-08] MEDS ORDERED: MORPHINE SULFATE 10 MG/ML INJ IV ONE (18:46)
--- NOTE | 2018-05-08 18:59 | ER Document Report ---
Addendum entered and electronically signed by BRITTANY AMBROSE PA-C 05/08/18 19:19: Course - Re-evaluation Re-evalutation: 05/08/18 19:18 Patient's workup is negative. No evidence of infection. No evidence of kidney stone. Patient complains of burning when she pees. Will need to do a pelvic exam - Vital Signs Vital signs: Temp Pulse Resp BP Pulse Ox 97.9 F 95 16 112/52 L 98 05/08/18 15:52 05/08/18 15:52 05/08/18 15:52 05/08/18 15:52 05/08/18 15:52 - Laboratory Result Diagrams: 05/08/18 16:30 05/08/18 16:30 Laboratory results interpreted by me: 05/08/18 05/08/18 16:30 16:30 RDW 15.5 H Sodium 136.8 L BUN 4 L Addendum entered and electronically signed by BRITTANY AMBROSE PA-C 05/08/18 19:05: Discharge - Discharge Clinical Impression: Acute left flank pain Condition: Good Disposition: HOME, SELF-CARE Instructions: Abdominal Pain ([facility]), Antinausea Medication ([facility]) Additional Instructions: CT scan is normal. Lab work is normal. Please take naproxen as needed for back pain and follow-up with your primary care provider. Prescriptions: Naproxen 500 mg PO BID 7 Days #14 tablet Ondansetron [Zofran Odt 4 mg Tablet] 1 - 2 tab PO Q4H PRN #15 tab.rapdis PRN Reason: For Nausea/Vomiting Referrals: [facility] [Provider Group] - Follow up tomorrow Original Note: ED General - General Chief Complaint: Flank Pain Stated Complaint: BACK/RIB PAIN Time Seen by Provider: 05/08/18 16:27 Mode of Arrival: Ambulatory Information source: Patient TRAVEL OUTSIDE OF THE [place] IN LAST 30 DAYS: No - HPI Patient complains to provider of: Left flank pain radiating to the abdomen Onset: Other - Last night Onset/Duration: Sudden Quality of pain: Sharp Severity: Severe Pain Level: 4 Associated symptoms: denies: Chills, Fever Exacerbated by: Denies Relieved by: Denies Similar symptoms previously: No Recently seen / treated by doctor: No Notes: 37-year-old female coming in today with left-sided flank pain radiating to her abdomen with reported nausea and vomiting today. Denies fevers and shaking chills. - Related Data Allergies/Adverse Reactions: Sulfa (Sulfonamide Antibiotics) Allergy (Verified 11/21/17 09:49) Past Medical History - General Information source: Patient - Social History Smoking Status: Current Every Day Smoker Frequency of alcohol use: None Drug Abuse: None Family History: Reviewed & Not Pertinent Patient has suicidal ideation: No Patient has homicidal ideation: No Renal/ Medical History: Denies: Hx Peritoneal Dialysis Past Surgical History: Reports: Hx Adenoidectomy, Hx Cholecystectomy, Hx Myringotomy, Hx Tonsillectomy, Hx Tubal Ligation - Immunizations Immunizations up to date: Yes Hx Diphtheria, Pertussis, Tetanus Vaccination: Yes Review of Systems - Review of Systems Notes: Constitutional: No fevers. No chills. EENT: No eye redness. No eye pain. No ear pain. No sore throat. Cardiovascular: No chest pain. No palpitations. Respiratory: No cough. No shortness of breath. No respiratory distress. Gastrointestinal: Positive for abdominal pain and flank pain. No nausea, vomiting, or diarrhea. Genitourinary: Atraumatic. No lesions. No pain. No discharge. Musculoskeletal: Atraumatic. No swelling. No deformities. Skin: No rash or lesions. Lymphatic: No swollen lymph nodes. Neurologic: No headache. No syncope. Psychiatric: No suicidal or homicidal ideation. Physical Exam - Vital signs Vitals: Temp Pulse Resp BP Pulse Ox 97.9 F 95 16 112/52 L 98 05/08/18 15:52 05/08/18 15:52 05/08/18 15:52 05/08/18 15:52 05/08/18 15:52 - Notes Notes: General: Well-developed, well-nourished. In no acute distress. Non-toxic appearing. Cardiac: Well-perfused. Regular rate and rhythm. No murmurs, rubs, or gallops. Pulmonary: No respiratory distress. No cyanosis. Bilateral lung fiels are clear to auscultation. Abdominal: Non-distended. Non-rigid. Bowels sounds are present in all four quadrants. No guarding or rebound. HEENT: Head is atraumatic. Conjunctivae not reddened. No tearing. PERRL. EOMI. Orbits atraumatic. No periorbital swelling or erythema. Oropharynx is without erythema, swelling, or exudates. Neck: Supple. No adenopathy. No meningismus. Dermatologic: Warm with good turgor. No rash. Atraumatic. Chest: Atraumatic. No chest wall tenderness to palpation. Musculoskeletal: Moves all extremities well. No range of motion deficits. no muscular or joint tenderness. No paraspinal muscle tenderness. no midline spinal tenderness or step-off. Genitourinary: Examination deferred Neurologic: No gross neurologic deficits. Psychiatric: Normal mood. Course - Re-evaluation Re-evalutation: 05/08/18 18:59 Patient's workup is negative. CT is negative. Patient with signs and symptoms consistent with possible kidney stone. Question possible renal colic. Question possible passed stone. Patient is currently on Suboxone because of heroin addiction in the past. She looks to be in significant discomfort here. Will not discharge home with any narcotics but will give a dose of morphine. She can follow-up with her primary care doctor or the [facility] - Vital Signs Vital signs: Temp Pulse Resp BP Pulse Ox 97.9 F 95 16 112/52 L 98 05/08/18 15:52 05/08/18 15:52 05/08/18 15:52 05/08/18 15:52 05/08/18 15:52 - Laboratory Result Diagrams: 05/08/18 16:30 05/08/18 16:30 Laboratory results interpreted by me: 05/08/18 05/08/18 16:30 16:30 RDW 15.5 H Sodium 136.8 L BUN 4 L - Diagnostic Test Radiology reviewed: Reports reviewed Discharge - Discharge Clinical Impression: Acute left flank pain Condition: Good Disposition: HOME, SELF-CARE Instructions: Antinausea Medication ([facility]), Abdominal Pain ([facility]) Additional Instructions: CT scan is normal. Lab work is normal. Please take naproxen as needed for back pain and follow-up with your primary care provider. Prescriptions: Naproxen 500 mg PO BID 7 Days #14 tablet Referrals: [facility] [Provider Group] - Follow up tomorrow
== END 2018-05-08 21:30 | disposition left against medical advice (07) ==
LOC: ER 15:38
DX: Z53.21 Procedure and treatment not carried out due to patient leaving prior to being seen by health care provider (principal); R10.9 Unspecified abdominal pain; R07.81 Pleurodynia; M54.9 Dorsalgia, unspecified; R11.2 Nausea with vomiting, unspecified; F17.200 Nicotine dependence, unspecified, uncomplicated
CPT/HCPCS: 99281; 96361; 96374; 96375; 36415; 85025; 81025; 80053; 81001; 80307; 74176; J1885; J2270; J2405; J7030

== ENCOUNTER 2019-09-08 06:39 | Emergency (ER) | payer OTHER ==
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
[2019-09-08 08:51] VITALS: BP 111/69
== END 2019-09-08 08:50 | disposition home or self-care (01) ==
LOC: ER 06:39
DX: S16.1XXA Strain of muscle, fascia and tendon at neck level, initial encounter (principal); V89.2XXA Person injured in unspecified motor-vehicle accident, traffic, initial encounter; F17.200 Nicotine dependence, unspecified, uncomplicated; Z90.49 Acquired absence of other specified parts of digestive tract; Z98.51 Tubal ligation status; Z88.2 Allergy status to sulfonamides
CPT/HCPCS: 99283

== ENCOUNTER 2019-10-26 02:42 | Emergency (ER) | payer OTHER ==
[2019-10-26] MEDS ORDERED: LORAZEPAM 1 MG TABLET PO ONE (03:06)
[2019-10-26] MEDS ORDERED: PROMETHAZINE HCL 25 MG TABLET PO ONE (03:06)
[2019-10-26 03:09] VITALS: BP 143/86
--- NOTE | 2019-10-26 03:10 | ER Document Report ---
ED Medical Screen (RME) - General Chief Complaint: Drug Abuse Stated Complaint: DETOX Time Seen by Provider: 10/26/19 03:06 Notes: 38-year-old female with chief complaint of opiate withdrawals, wanting detox, and also sick symptoms. Withdrawal symptoms include shakes, nausea, vomiting. Sick symptoms include cough, sore throat, body aches, fever yesterday, and loss of taste. She denies any obvious sick contacts. Drug of choice is IV heroin. Patient states she did take what she thinks is Suboxone from her friend over the past day but this did not seem to help. TRAVEL OUTSIDE OF THE [place] IN LAST 30 DAYS: No - Related Data Allergies/Adverse Reactions: Sulfa (Sulfonamide Antibiotics) Allergy (Verified 11/21/17 09:49) Past Medical History - Social History Frequency of alcohol use: None Drug Abuse: Heroin Family history: None Renal/ Medical History: Denies: Hx Peritoneal Dialysis Past Surgical History: Reports: Hx Adenoidectomy, Hx Cholecystectomy, Hx Myringotomy, Hx Tonsillectomy, Hx Tubal Ligation - Immunizations Immunizations up to date: Yes Hx Diphtheria, Pertussis, Tetanus Vaccination: Yes Physical Exam - General General appearance: Other - Patient anxious, restless, has trouble holding still, slightly shaky - Respiratory Respiratory status: No respiratory distress Breath sounds: Normal - Cardiovascular Rhythm: Regular, Tachycardia Heart sounds: Normal auscultation, S1 appreciated, S2 appreciated Course - Re-evaluation Re-evalutation: Patient is anxious and restless, does not have a fever here, she is mildly tachycardic on exam, clear lungs. Patient is disheveled but not toxic in appearance. Work-up pending for medical clearance for detox and patient is also reporting symptoms suspicious for COVID-19. I have greeted and performed a rapid initial assessment of this patient. A comprehensive ED assessment and evaluation of the patient, analysis of test results and completion of the medical decision making process will be conducted by additional ED providers.
== END 2019-10-26 04:45 | disposition left against medical advice (07) ==
LOC: ER 02:42
DX: Z53.20 Procedure and treatment not carried out because of patient's decision for unspecified reasons (principal); F11.23 Opioid dependence with withdrawal; R25.1 Tremor, unspecified; R11.2 Nausea with vomiting, unspecified; F41.9 Anxiety disorder, unspecified; R00.0 Tachycardia, unspecified; Z88.2 Allergy status to sulfonamides
CPT/HCPCS: 99281

== ENCOUNTER 2019-10-26 08:30 | Emergency (ER) | payer SELFPAY ==
[2019-10-26 10:28] LABS: APPEARANCE,URINE SLIGHTLY-CLOUDY; BILIRUBIN,URINE NEGATIVE (NEGATIVE); COLOR,URINE YELLOW; GLUCOSE, URINE NEGATIVE (NEGATIVE); KETONES,URINE NEGATIVE (NEGATIVE); LEUKOCYTE ESTERASE,URINE NEGATIVE (NEGATIVE); NITRITE,URINE NEGATIVE (NEGATIVE); PROTEIN,URINE 100 mg/dL (NEGATIVE); URINE SPECIFIC GRAVITY 1.016
[2019-10-26] MEDS ORDERED: NICOTINE 21 MG/24 HR PATCH.TD24 TD ONE (10:34)
[2019-10-26 10:35] LABS: ADD MANUAL MICROSCOPIC YES; WBC,URINE 0-1 /HPF
[2019-10-26] MEDS ORDERED: LORAZEPAM 1 MG TABLET PO ONE (10:35)
[2019-10-26] MEDS ORDERED: KETOROLAC TROMETHAMINE INJ/PF 30 MG/1 ML SDV IV ONE (10:35)
[2019-10-26] MEDS ORDERED: CYCLOBENZAPRINE HCL 10 MG TABLET PO ONE (10:36)
[2019-10-26] MEDS ORDERED: NORMAL SALINE 1000 ML 1,000 ML IV ONE (10:37)
[2019-10-26 10:41] LABS: URINE AMPHETAMINES SCREEN NEGATIVE; URINE BARBITURATES SCREEN NEGATIVE; URINE BENZODIAZEPINES SCREEN NEGATIVE; URINE COCAINE SCREEN NEGATIVE; URINE METHADONE SCREEN NEGATIVE; URINE PHENCYCLIDINE SCREEN NEGATIVE
[2019-10-26 10:42] LABS: URINE MARIJUANA (THC) SCREEN UNCONFIRMED POSITIVE
--- NOTE | 2019-10-26 10:44 | ER Document Report ---
ED General - General Chief Complaint: Drug Abuse Stated Complaint: WITHDRAWAL Time Seen by Provider: 10/26/19 10:03 TRAVEL OUTSIDE OF THE [place] IN LAST 30 DAYS: No - HPI Notes: Chief compliant: Request for opiate detox HPI: 38-year-old female with 18-year history of IV heroin abuse presents now requesting detox stating she is never been through inpatient detox in the past. She says her proximal motivation at this time is a custody issue with her children. She denies any suicidal or homicidal ideation. She denies auditory or visual hallucinations. She says she rarely consumes alcohol. She denies using any other type of drugs. Patient states that she snorted some heroin about 12 hours ago. Presently she is complaining of restlessness, diaphoresis, diffuse muscular cramping and nausea with "dry heaves". - Related Data Allergies/Adverse Reactions: Sulfa (Sulfonamide Antibiotics) Allergy (Verified 11/21/17 09:49) Past Medical History - General Information source: Patient, [facility] Records - Social History Smoking Status: Current Every Day Smoker Frequency of alcohol use: Occasional Drug Abuse: Heroin, Other Family History: Reviewed & Not Pertinent - Past Medical History Cardiac Medical History: Reports: None Pulmonary Medical History: Reports: None Renal/ Medical History: Denies: Hx Peritoneal Dialysis Past Surgical History: Reports: Hx Adenoidectomy, Hx Cholecystectomy, Hx Myringotomy, Hx Tonsillectomy, Hx Tubal Ligation - Immunizations Immunizations up to date: Yes Hx Diphtheria, Pertussis, Tetanus Vaccination: Yes Review of Systems - Review of Systems Notes: Constitutional: Negative for fever. HENT: Negative for sore throat. Eyes: Negative for visual changes. Cardiovascular: Negative for chest pain. Respiratory: Negative for shortness of breath. Gastrointestinal: Nausea and "dry heaves". Genitourinary: Negative for dysuria. Currently menstruating. Musculoskeletal: Diffuse muscular cramping. Skin: Negative for rash. Neurological: Negative for headaches, weakness or numbness. 10 point ROS negative except as marked above and in HPI. Physical Exam - Vital signs Vitals: Temp Pulse Resp BP Pulse Ox 98.9 F 99 20 138/80 H 99 10/26/19 08:39 10/26/19 08:39 10/26/19 08:39 10/26/19 08:39 10/26/19 08:39 - Notes Notes: GENERAL: Unkempt appearing middle-aged female who appears very restless and uncomfortable. SKIN: Mildly diaphoretic. Good turgor no rashes. Needle tracks noted right antecubital fossa. HEAD: Normocephalic atraumatic. EYES: PERRLA. EOMI. Conjunctivae and sclerae clear. EARS: CANALS AND TMS CLEAR. NOSE: CLEAR. MOUTH: Moist mucosa. Good dentition. No stridor or edema. No drooling. NECK: Supple. No masses or thyromegaly. No adenopathy. Carotids 2+ without bruits. No JVD. BACK: Symmetrical with diffuse tenderness. CHEST: Respirations unlabored. Breath sounds clear and symmetrical. HEART: Regular rhythm. No murmur gallop or rub. ABDOMEN: Soft nontender without masses, organomegaly or rebound. Bowel sounds normally active. No bruits. GENITALIA: Deferred. EXTREMITIES: No edema. No calf tenderness. Cap refill less than 1.5 seconds. Dorsalis pedis and posterior tibial pulses 3+ and symmetrical. NEUROLOGICAL: GCS 15. Alert and oriented x3. Normal gait. Fluent speech. Cranial nerves II through XII intact. Sensorimotor and cerebellar normal. Normal tone. PSYCHIATRIC: Anxious and irritable affect. Course - Re-evaluation Re-evalutation: 10/26/19 14:13 We have administered medications here for symptomatic treatment of patient's withdrawal from heroin. She has been cleared medically has been seen by the behavioral team. We agree that she does not meet criteria for medical admission or for IVC. She is interested in detox and behavioral team has provided her telephone number to call to enter a detox program. Findings, clinical impression and plan of treatment have been discussed with patient/family. Understanding of current findings and recommendations has been acknowledged by them and there is agreement regarding disposition and follow-up. - Vital Signs Vital signs: Temp Pulse Resp BP Pulse Ox 98.9 F 99 18 138/80 H 100 10/26/19 08:39 10/26/19 08:39 10/26/19 13:45 10/26/19 08:39 10/26/19 13:45 - Laboratory Result Diagrams: 10/26/19 11:14 10/26/19 11:14 Laboratory results interpreted by me: 10/26/19 10/26/19 10/26/19 09:59 11:14 11:14 WBC 11.8 H Hgb 11.2 L Hct 33.3 L RDW 16.1 H Plt Count 468 H Lymph % (Auto) 8.7 L Absolute Neuts (auto) 10.3 H Seg Neutrophils % 87.7 H BUN 3 L Glucose 126 H Urine Protein 100 H Urine Blood LARGE H Urine Urobilinogen 2.0 H Urine Ascorbic Acid 40 H Discharge - Discharge Clinical Impression: Opiate abuse, continuous Condition: Stable Disposition: HOME, SELF-CARE Additional Instructions: Narcotic Abuse You have been given a prescription for pain control. This medication is a narcotic. It's best taken with food, as nausea can result if taken on an empty stomach. Don't operate machinery or drive within six hours of taking this medication. Do not combine this medicine with alcohol, or with any medication which can cause sedation (such as cold tablets or sleeping pills) unless you get permission from the physician. Narcotics tend to cause constipation. If possible, drink plenty of fluids and eat a diet high in fiber and fruits. Please be aware that prescription narcotics also have the potential for abuse. People become addicted to these medications because of the general sense of wellbeing that they induce. This feeling along with a significant reduction in tension, anxiety, and aggression provides a stimulating seductive quality to these drugs. Once your pain is under control, we encourage you to discard your unused narcotics. Contact detox program provided to you by the behavioral health team today.
[2019-10-26 11:41] LABS: ABSOLUTE MONOCYTES (AUTO) 0.4 10^3/uL (0.1-1.4); ABSOLUTE NEUT (AUTO) 10.3 10^3/uL (1.7-8.2); BASOPHILS % (AUTO) 0.2 % (0-2); HEMATOCRIT 33.3 % (36.0-47.0); HEMOGLOBIN 11.2 g/dL (12.0-15.5); LYMPHOCYTES % (AUTO) 8.7 % (13-45); MEAN CORPUSCULAR HEMOGLOBIN 28.3 pg (27.0-33.4); MEAN CORPUSCULAR HGB CONC 33.6 g/dL (32.0-36.0); MEAN CORPUSCULAR VOLUME 84 fl (80-97); MONOCYTES % (AUTO) 3.4 % (3-13); PLATELET COUNT 468 10^3/uL (150-450); RED BLOOD COUNT 3.94 10^6/uL (3.72-5.28); RED CELL DISTRIBUTION WIDTH 16.1 % (11.5-14.0); SEGMENTED NEUTROPHILS % (AUTO) 87.7 % (42-78); TOTAL CELLS COUNTED % (AUTO) 100 %; WHITE BLOOD COUNT 11.8 10^3/uL (4.0-10.5)
[2019-10-26 11:51] LABS: ALKALINE PHOSPHATASE 83 U/L (38-126); ANION GAP 11 (5-19); ASPARTATE AMINO TRANSFERASE 16 U/L (14-36); BILIRUBIN,DIRECT 0.3 mg/dL (0.0-0.4); BILIRUBIN,TOTAL 0.4 mg/dL (0.2-1.3); BLOOD UREA NITROGEN 3 mg/dL (7-20); CALCIUM 9.7 mg/dL (8.4-10.2); CARBON DIOXIDE 26 mmol/L (22-30); CHLORIDE 104 mmol/L (98-107); GLUCOSE 126 mg/dL (75-110); POTASSIUM 3.8 mmol/L (3.6-5.0); TOTAL PROTEIN 7.3 g/dL (6.3-8.2)
[2019-10-26 11:55] LABS: ALCOHOL < 10 mg/dL (NONE DETECTED)
[2019-10-26] MEDS ORDERED: HALOPERIDOL LACTATE INJ 5 MG/1 ML VIAL IM ONE (12:25)
[2019-10-26] MEDS ORDERED: BENZTROPINE MESYLATE INJ 2 MG/2 ML AMPULE IM ONE (12:26)
--- NOTE | 2019-10-26 13:46 | PSYCHOLOGICAL NOTE ---
Psych Note - Psych Note Date seen by psych provider: 10/26/19 Time seen by psych provider: 11:20 Psych Note: Reason for Consult: Detox Patient arrived to [facility] ED via EMS for concerns of withdrawal. Patient confirms she would like to go to detox. She reports she has never gone through withdrawals this bad; ie muscle spasms and body aches. She states she does not have insurance. She states she is withdrawing from heroin. Clinician contacted [facility]; the confirm the have voluntary beds available. They request the patient contact they to schedule an intake appointment. Patient is alert and orientated to person, place, time and circumstance. Mood is irritable with congruent affect. Patient is visibly arching her back, grimacing and reporting significant body aches and muscle spasms. Patient denies suicidal homicidal ideations. Delusions are absent behaviors congruent with intact reality is presentation I organized and linear thought process. Eye contact is poor. Conversational speech is halting. Intellectual abilities appear to be within the average range. Attention and concentration is poor. Insight, judgment, impulse control is fair. Clinical presentation: Active opiate withdrawal Medication recommendations per [facility]'s contracted psychiatrist Dr. Baljit HURTADO are as follows: Haldol 5 mg twice daily PRN Cogentin 1 mg daily PRN Impression\plan: Patient is cleared from acute psychiatric services. Patient is experiencing active opiate withdrawal. Medication recommendations have been provided to assist the patient during this time. Patient is identifying wanting assistance to get into detox. This is a voluntary placement. Dr. Marcano was consulted on the care and management of this patient; attending physician is in agreement with recommendations and disposition.
[2019-10-26 14:30] VITALS: BP 129/85
== END 2019-10-26 14:47 | disposition home or self-care (01) ==
LOC: ER 08:30
DX: F11.20 Opioid dependence, uncomplicated (principal); R45.1 Restlessness and agitation; R61 Generalized hyperhidrosis; R25.2 Cramp and spasm; R11.2 Nausea with vomiting, unspecified; F17.200 Nicotine dependence, unspecified, uncomplicated; Z88.2 Allergy status to sulfonamides
CPT/HCPCS: 99285; 96372; 96361; 96374; 36415; 80307 ×2; 83735; 85025; 80053; 81001; J0515; J1630; J1885; J7030

== ENCOUNTER 2020-02-26 11:15 | Emergency (ER) | payer MEDICAID ==
[2020-02-26] MEDS ORDERED: ONDANSETRON 4 MG TAB.RAPDIS PO ONE (13:07)
--- NOTE | 2020-02-26 13:07 | ER Document Report ---
ED Medical Screen (RME) - General Chief Complaint: Abdominal Pain Stated Complaint: ABDOMINAL PAIN Time Seen by Provider: 02/26/20 12:59 Mode of Arrival: Ambulatory Information source: Patient Notes: 39-year-old female presented to ED for complaint of some kind of bug inside of her skin and now inside of her body. She states on [place] she used some Jorge balm on her face and body and then she started spitting up some kind of bug and they were coming out of her nose. She states what ever was in her skin is now in her stomach and causing her to have abdominal pain and gagging. She also has pelvic pain from this bug. She states the bug moved from her skin to the inside of her body. She states she smokes a pack a day and she does use marijuana but she does not drink alcohol. She does have a history of bipolar anxiety and depression. I have greeted and performed a rapid initial assessment of this patient. A comprehensive ED assessment and evaluation of the patient, analysis of test results and completion of medical decision making process will be conducted by an additional ED providers. TRAVEL OUTSIDE OF THE [place] IN LAST 30 DAYS: No - Related Data Allergies/Adverse Reactions: Sulfa (Sulfonamide Antibiotics) Allergy (Verified 11/21/17 09:49) Past Medical History - Social History Family history: None Renal/ Medical History: Denies: Hx Peritoneal Dialysis Past Surgical History: Reports: Hx Adenoidectomy, Hx Cholecystectomy, Hx Myringotomy, Hx Tonsillectomy, Hx Tubal Ligation - Immunizations Immunizations up to date: Yes Hx Diphtheria, Pertussis, Tetanus Vaccination: Yes Physical Exam - Vital signs Vitals: Temp Pulse Resp BP Pulse Ox 97.8 F 100 16 108/66 98 02/26/20 11:18 02/26/20 11:18 02/26/20 11:18 02/26/20 11:18 02/26/20 11:18 Course - Vital Signs Vital signs: Temp Pulse Resp BP Pulse Ox 97.8 F 100 16 108/66 98 02/26/20 11:18 02/26/20 11:18 02/26/20 11:18 02/26/20 11:18 02/26/20 11:18
[2020-02-26 14:14] LABS: ABSOLUTE EOSINOPHILS # (AUTO) 0.3 10^3/uL (0.0-0.6); ABSOLUTE LYMPHOCYTES (AUTO) 1.7 10^3/uL (0.5-4.7); ABSOLUTE MONOCYTES (AUTO) 0.4 10^3/uL (0.1-1.4); ABSOLUTE NEUT (AUTO) 4.6 10^3/uL (1.7-8.2); APPEARANCE,URINE CLEAR; BASOPHILS % (AUTO) 0.7 % (0-2); BILIRUBIN,URINE NEGATIVE (NEGATIVE); COLOR,URINE STRAW; GLUCOSE, URINE NEGATIVE (NEGATIVE); HEMATOCRIT 37.5 % (36.0-47.0); HEMOGLOBIN 12.7 g/dL (12.0-15.5); KETONES,URINE NEGATIVE (NEGATIVE); LEUKOCYTE ESTERASE,URINE SMALL (NEGATIVE); LYMPHOCYTES % (AUTO) 24.4 % (13-45); MEAN CORPUSCULAR HEMOGLOBIN 29.6 pg (27.0-33.4); MEAN CORPUSCULAR VOLUME 87 fl (80-97); MONOCYTES % (AUTO) 5.4 % (3-13); NITRITE,URINE NEGATIVE (NEGATIVE); PLATELET COUNT 348 10^3/uL (150-450); PROTEIN,URINE NEGATIVE (NEGATIVE); RED BLOOD COUNT 4.31 10^6/uL (3.72-5.28); RED CELL DISTRIBUTION WIDTH 16.9 % (11.5-14.0); SEGMENTED NEUTROPHILS % (AUTO) 65.5 % (42-78); TOTAL CELLS COUNTED % (AUTO) 100 %; URINE SPECIFIC GRAVITY 1.009; UROBILINOGEN,URINE NEGATIVE mg/dL (<2.0); WHITE BLOOD COUNT 7.1 10^3/uL (4.0-10.5)
[2020-02-26 14:31] LABS: ALBUMIN 4.1 g/dL (3.5-5.0); ALKALINE PHOSPHATASE 50 U/L (38-126); ANION GAP 6 (5-19); ASPARTATE AMINO TRANSFERASE 19 U/L (14-36); BILIRUBIN,DIRECT 0.1 mg/dL (0.0-0.4); BILIRUBIN,TOTAL 0.4 mg/dL (0.2-1.3); BLOOD UREA NITROGEN 9 mg/dL (7-20); CALCIUM 9.3 mg/dL (8.4-10.2); CARBON DIOXIDE 29 mmol/L (22-30); CHLORIDE 105 mmol/L (98-107); GLUCOSE 91 mg/dL (75-110); POTASSIUM 4.1 mmol/L (3.6-5.0); TOTAL PROTEIN 7.2 g/dL (6.3-8.2)
[2020-02-26 14:34] LABS: URINE AMPHETAMINES SCREEN NEGATIVE; URINE BARBITURATES SCREEN NEGATIVE; URINE BENZODIAZEPINES SCREEN NEGATIVE; URINE COCAINE SCREEN NEGATIVE; URINE METHADONE SCREEN NEGATIVE; URINE PHENCYCLIDINE SCREEN NEGATIVE
[2020-02-26 14:35] LABS: URINE MARIJUANA (THC) SCREEN UNCONFIRMED POSITIVE
[2020-02-26] MEDS ORDERED: ONDANSETRON 4 MG TAB.RAPDIS ONE (16:55)
--- NOTE | 2020-02-26 18:32 | ER Document Report ---
ED GI/ - General Chief Complaint: Abdominal Pain Stated Complaint: ABDOMINAL PAIN Time Seen by Provider: 02/26/20 12:59 Mode of Arrival: Ambulatory Information source: Patient Notes: PRIOR ED VISIT 09/2019 ED Medical Screen ([facility])) Chief Complaint: Drug Abuse Stated Complaint: DETOX Time Seen by Provider: 10/26/19 03:06 Notes: 38-year-old female with chief complaint of opiate withdrawals, wanting detox, and also sick symptoms. Withdrawal symptoms include shakes, nausea, vomiting. Sick symptoms include cough, sore throat, body aches, fever yesterday, and loss of taste. She denies any obvious sick contacts. Drug of choice is IV heroin. Patient states she did take what she thinks is Suboxone from her friend over the past day but this did not seem to help. Dr. 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 She says her proximal motivation at this time is a custody issue with her children. She denies any suicidal or homicidal ideation. She denies auditory or visual hallucinations. She says she rarely consumes alcohol. She denies using any other type of drugs. Patient states that she snorted some heroin about 12 hours ago. Presently she is complaining of restlessness, diaphoresis, diffuse muscular cramping and nausea with "dry heaves". 02/26/20 13:05 - ED Nursing Note by TERRENCE HAWKINS Acct Num: [id number] : 1980 Patient Age: 39 Pt c/o lower ABD pain that started on [place] after she had placed Tea Tree balm and she states that she started having "Parasites, larva, or some maggot fall out" her mouth and nose. She states that "whatever is going on in my mouth" is now in her stomach. She states she has been coughing up "black spots" as well. Pt reports she feels "something is trying to crawl out of her mouth right now" and using the tea tree oil helps "keep whatever is trying to come out at bay" Pt denies any active difficulty breathing and states when she lays down "I can hear shit making noises in my throat" Unable to visualize any parasites in triage. Pt is able to speak full sentences without difficulty. She is calm and cooperative at this time. Initialized on 02/26/20 13:05 - END OF NOTE MY NOTES 39-year-old female laying in room 43 [facility] with chief complaint of 4 years of having something crawling in and out of her mouth and nose and abdome n and rectum. She now reports since she been having something crawling under her skin of her arms forearms hands and nose and in her abdomen. She has been using tea tree oil and applying it topically which helps with her problems. Patient reports she has had weight loss with this and cramps in her abdomen. She also has itchy rectum. She denies any rectal worms but does see little white flakes that come out of her nose. Also she rooms with someone from [place]. She has been to [facility] within the last year as well. She no longer is on heroin. She does have multiple scarring over her forearms from 18- year history of heroin abuse. Patient denies any homicidal or suicidal ideation. Patient does complain of frontal headache but denies any visual difficulties or hearing difficulties. She denies hearing any voices or seeing people that are not there . TRAVEL OUTSIDE OF THE [place] IN LAST 30 DAYS: No - HPI Patient complains to provider of: Abdominal pain. No: Diarrhea, Dysuria, Feeding tube problem, Flank pain, Colvin catheter problem, Hematuria, Missed/Late menses, Pelvic pain, , Urinary retention, Vaginal bleeding, Vaginal discharge, Vaginal pain, Vomiting Onset: Other - 3 days ago symptoms worsened Timing/Duration: Sudden, Persistent, Worse Quality of pain: Fullness. 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, Heavier, Severe, Bright red - Related Data Allergies/Adverse Reactions: Sulfa (Sulfonamide Antibiotics) Allergy (Verified 11/21/17 09:49) Past Medical History - General Information source: Patient - Social History Smoking Status: Current Every Day Smoker Cigarette use (# per day): Yes Chew tobacco use (# tins/day): No Smoking Education Provided: Yes Frequency of alcohol use: None Drug Abuse: Other - Patient reports she is no longer doing heroin; Lives with: Family Family History: Reviewed & Not Pertinent Patient has suicidal ideation: No Patient has homicidal ideation: No Renal/ Medical History: Denies: Hx Peritoneal Dialysis Past Surgical History: Reports: Hx Adenoidectomy, Hx Cholecystectomy, Hx Myringotomy, Hx Tonsillectomy, Hx Tubal Ligation - Immunizations Immunizations up to date: Yes Hx Diphtheria, Pertussis, Tetanus Vaccination: Yes Review of Systems - Review of Systems Constitutional: No symptoms reported EENT: No symptoms reported Cardiovascular: No symptoms reported Respiratory: No symptoms reported Gastrointestinal: No symptoms reported Genitourinary: No symptoms reported Female Genitourinary: No symptoms reported Musculoskeletal: No symptoms reported Skin: No symptoms reported Hematologic/Lymphatic: No symptoms reported Neurological/Psychological: See HPI, Anxiety, Headaches, Other - delusional -: Yes All other systems reviewed and negative Physical Exam - Vital signs Vitals: Temp Pulse Resp BP Pulse Ox 97.8 F 100 16 108/66 98 02/26/20 11:18 02/26/20 11:18 02/26/20 11:18 02/26/20 11:18 02/26/20 11:18 Interpretation: Tachycardic - General General appearance: Appears well, Alert - HEENT Head: Normocephalic, Atraumatic Eyes: Normal Pupils: PERRL Nasal: Other - dry nares skin peeling Mucous membranes: Dry Pharynx: Erythema Neck: Normal - Respiratory Respiratory status: No respiratory distress Chest status: Nontender Breath sounds: Normal Chest palpation: Normal - Cardiovascular Rhythm: Regular Heart sounds: Normal auscultation Murmur: No - Abdominal Inspection: Normal Distension: No distension Bowel sounds: Normal Tenderness: Nontender Organomegaly: No organomegaly - Rectal Hemorrhoids: Other - Genitourinary Bimanuel exam: Other - Deferred - Back Back: Normal, Nontender - Extremities General upper extremity: Normal inspection, Nontender, Normal color, Normal ROM, Normal temperature General lower extremity: Normal inspection, Nontender, Normal color, Normal ROM, Normal temperature, Normal weight bearing. No: Amita's sign - Neurological Neuro grossly intact: Yes Cognition: Normal Orientation: AAOx4 [place] Coma Scale Eye Opening: Spontaneous Kathryn Coma Scale Verbal: Oriented Kathryn Coma Scale Motor: Obeys Commands [place] Coma Scale Total: 15 Speech: Normal Motor strength normal: LUE, RUE, LLE, RLE Sensory: Normal - Psychological Associated symptoms: Normal affect, Normal mood - Skin Skin Temperature: Warm Skin Moisture: Dry Skin Color: Other - old scarring iv Course - Vital Signs Vital signs: Temp Pulse Resp BP Pulse Ox 97.8 F 100 16 108/66 98 02/26/20 11:18 02/26/20 11:18 02/26/20 11:18 02/26/20 11:18 02/26/20 11:18 - Laboratory Results Result Diagrams: 02/26/20 13:49 02/26/20 13:49 Laboratory Results Interpreted: 02/26/20 02/26/20 13:49 13:49 RDW 16.9 H Ur Leukocyte Esterase SMALL H Urine Ascorbic Acid 40 H Critical Laboratory Results Reviewed: No Critical Results Attending or Supervising Physician who Reviewed Labs: RAUL PUENTE JR - Radiology Results Critical Radiology Results Reviewed: No Critical Results Attending or Supervising Physician who Reviewed Radiology: RAUL PUENTE JR Discharge - Discharge Clinical Impression: Delusions of parasitosis, Discharge Condition: Stable Disposition: HOME, SELF-CARE Additional Instructions: Follow-up with personal doctor return to ER as needed for true emergencies take medications as directed encourage fluids; apply Bactroban to nose nightly for 7 nights. Prescriptions: Ivermectin [Stromectol 3 mg Tablet] 3 mg PO DAILY 3 Days #3 tablet Trazodone HCl 50 mg PO HSP PRN #10 tablet PRN Reason:
[2020-02-26] MEDS ORDERED: HALOPERIDOL LACTATE INJ 5 MG/1 ML VIAL IM ONE (18:58)
[2020-02-26] MEDS ORDERED: IVERMECTIN 3 MG TABLET PO ONE (18:58)
[2020-02-26] MEDS ORDERED: MUPIROCIN 2% OINTMENT 22 GM TOP ONE (18:59)
[2020-02-26] MEDS ORDERED: TRAZODONE HCL 50 MG TABLET PO ONE (19:39)
[2020-02-26 20:35] VITALS: BP 126/44
== END 2020-02-26 20:15 | disposition home or self-care (01) ==
LOC: ER 11:15
DX: N89.8 Other specified noninflammatory disorders of vagina (principal); F22 Delusional disorders; R10.9 Unspecified abdominal pain; F17.210 Nicotine dependence, cigarettes, uncomplicated; Z90.49 Acquired absence of other specified parts of digestive tract
CPT/HCPCS: 99283; 36415; 87086; 85025; 81025; 80053; 81001; 80307; S0119; J3490 ×3

== ENCOUNTER 2020-02-28 20:36 | Emergency (ER) | payer MEDICAID ==
[2020-02-28 21:00] VITALS: BP 153/67
--- NOTE | 2020-02-29 00:10 | ER Document Report ---
ED Medical Screen (RME) - General Stated Complaint: STATES VOMITING PARASITES Time Seen by Provider: 02/29/20 00:03 Mode of Arrival: Ambulatory Information source: Patient Notes: Patient is a 39-year-old female returns to the ER with a complaint of having parasites in her mouth or lungs in her rectal area. Patient was seen here Wednesday night for same presentation she was seen by position patient states she was told she had a parasite ptosis and was delusional. However patient was given medication called Invermectin. Patient states that when she takes it it makes her feel even worse. She states she did spit up something that she thinks is a warm and she brought that as well with her along with she was told that if she had a bowel movement to bring a stool sample back to the lab and they were running but she states when she brought it back they told her there was no orders. So that is why patient is wanting to be seen again tonight. This is been going on for quite a while according to patient she denies any history or recent use of any narcotics she has a past medical history for heroin abuse but she states she has not been doing anything for a while. She admits to smoking least a pack of cigarettes a day and does smoke marijuana but also denies alcohol. Physical examination: Patient is a thin appearing disheveled 39-year-old female who is in no apparent distress but is very teary and agitated at the same time on examination tonight. Cardiac: Patient displays a rate of 77 beats a minute on monitor no murmurs are auscultated. Lungs: Bilateral breath sounds breath sounds increased clear to auscultation no rhonchi rales or wheeze. Abdomen: Bowel sounds present 4 quads nontender to palpate. HEENT: Examination patient's oral cavity with a flashlight does not show any signs of parasites. I have greeted and performed a rapid initial assessment of this patient. A comprehensive ED assessment and evaluation of the patient, analysis of test results and completion of the medical decision making process will be conducted by additional ED providers. Dictation of this chart was performed using voice recognition software; therefore, there may be some unintended grammatical errors. TRAVEL OUTSIDE OF THE [place] IN LAST 30 DAYS: No - Related Data Allergies/Adverse Reactions: Sulfa (Sulfonamide Antibiotics) Allergy (Verified 11/21/17 09:49) Past Medical History - Social History Family history: None Renal/ Medical History: Denies: Hx Peritoneal Dialysis Past Surgical History: Reports: Hx Adenoidectomy, Hx Cholecystectomy, Hx Myringotomy, Hx Tonsillectomy, Hx Tubal Ligation - Immunizations Immunizations up to date: Yes Hx Diphtheria, Pertussis, Tetanus Vaccination: Yes Physical Exam - Vital signs Vitals: Temp Pulse Resp BP Pulse Ox 98.0 F 71 20 153/67 H 100 02/28/20 20:56 02/28/20 20:56 02/28/20 20:56 02/28/20 20:56 02/28/20 20:56 Course - Vital Signs Vital signs: Temp Pulse Resp BP Pulse Ox 98.0 F 71 20 153/67 H 100 02/28/20 20:56 02/28/20 20:56 02/28/20 20:56 02/28/20 20:56 02/28/20 20:56
== END 2020-02-29 00:20 | disposition left against medical advice (07) ==
LOC: ER 20:36
DX: R11.10 Vomiting, unspecified (principal); Z88.2 Allergy status to sulfonamides; Z90.49 Acquired absence of other specified parts of digestive tract; Z98.51 Tubal ligation status
CPT/HCPCS: 87045; 87177; 87205; 89055; 99281